=== PATIENT | female | born 1985 | race African-American/Black ===

== ENCOUNTER 2018-03-07 20:19 | Emergency (ER) | payer OTHER ==
[~2018-03-07] VITALS: Ht 160 cm; Wt 68.9 kg
[2018-03-07 20:19] VITALS: BP 109/72
--- NOTE | 2018-03-07 20:31 | ED.ADGEN ---
Adult General Chief Complaint Chief Complaint ".. I ve had a sore throat for 2 weeks.." HPI HPI Patient is a 32 year old female who presents with above hx and complaints generalized for 2 weeks. Has had increased nasal drainage and S in. Patient denies any specific ill contacts. Patient denies any travel. Patient denies any history of immunosuppression. Patient normally healthy. Patient does have injected pharynx. No adenopathy.. Any history of oral sex. Review of Systems Review of Systems Constitutional: Denies fever or chills [] Eyes: Denies change in visual acuity, redness, or eye pain [] HENT: Complains of nasal congestion. sore throat [] Respiratory: Denies cough or shortness of breath [] Cardiovascular: No additional information not addressed in HPI [] GI: Denies abdominal pain, nausea, vomiting, bloody stools or diarrhea [] : Denies dysuria or hematuria [] Musculoskeletal: Denies back pain or joint pain [] Integument: Denies rash or skin lesions [] Neurologic: Denies headache, focal weakness or sensory changes [] Endocrine: Denies polyuria or polydipsia [] All other systems were reviewed and found to be within normal limits, except as documented in this note. Family History Family History Noncontributory. Current Medications Current Medications Current Medications Medications (Trade) Dose Ordered Sig/Alfonso Start Time Stop Time Status Last Admin Dose Admin Prednisone (Prednisone) 20 mg STK-MED ONCE 03/07/18 21:04 03/07/18 21:05 DC Allergies Allergies Allergies Coded Allergies Type Severity Reaction Last Updated Verified Penicillins Allergy Unknown 03/07/18 Yes Physical Exam Physical Exam Constitutional: Well developed, well nourished, moderately acute distress, non- toxic appearance. [] HENT: Normocephalic, atraumatic, bilateral external ears normal, , no oral exudates, nose rhinorrhea. Swollen turbinates. Injected pharynx. Eyes: PERRLA, EOMI, conjunctiva normal, no discharge. [] Neck: Normal range of motion, no tenderness, supple, no stridor. [] Cardiovascular:Heart rate regular rhythm, no murmur [] Lungs & Thorax: Bilateral breath sounds clear to auscultation [] Abdomen: Bowel sounds normal, soft, no tenderness, no masses, no pulsatile masses. [] Skin: Warm, dry, no erythema, no rash. [] Back: No tenderness, no CVA tenderness. [] Extremities: No tenderness, no cyanosis, no clubbing, ROM intact, no edema. [] Neurologic: Alert and oriented X 3, normal motor function, normal sensory function, no focal deficits noted. [] Psychologic: Affect anxious, judgement normal, mood normal. [] Current Patient Data Vital Signs Vital Signs Date Time Temp Pulse Resp B/P (MAP) Pulse Ox O2 Delivery O2 Flow Rate FiO2 03/07/18 20:19 97.6 76 20 100 Room Air Lab Results Laboratory Tests Test 03/07/18 20:30 Group A Streptococcus Rapid Negative (NEGATIVE) EKG EKG [] Radiology/Procedures Radiology/Procedures [] Course & Med Decision Making Course & Med Decision Making Pertinent Labs and Imaging studies reviewed. (See chart for details). Gargle with Listerine 4 times a day. Take [id number] Tylenol and ibuprofen for pain. Lipid ibuprofen and liquid Benadryl may be helpful for pain. Follow-up primary care. Return if any concerns. [] Final Impression Final Impression 1, Pharyngitis- Viral 2. Seasonal Allergies Dragon Disclaimer Dragon Disclaimer This electronic medical record was generated, in whole or in part, using a voice recognition dictation system. JONATHAN BREAUX MD Mar 07, 2018 20:31
[2018-03-07] MEDS ORDERED: predniSONE 10 MG TABLET PO ONE (20:45)
[2018-03-07] MEDS ORDERED: predniSONE 20 MG TABLET ONE (21:04)
[2018-03-07] MEDS ORDERED: HYDR-79 PO (21:04)
== END 2018-03-07 21:10 | disposition home or self-care (01) ==
LOC: ER 20:19
DX: J30.2 Other seasonal allergic rhinitis (principal); J02.8 Acute pharyngitis due to other specified organisms; B97.89 Other viral agents as the cause of diseases classified elsewhere; Z88.0 Allergy status to penicillin
CPT/HCPCS: 87070; 87880; 99283; J7512

== ENCOUNTER 2018-12-02 10:39 | Emergency (ER) | payer OTHER ==
[~2018-12-02] VITALS: Ht 160 cm; Wt 81.6 kg
[~2018-12-02 10:39] MED LIST: HYDR-1179 PO
[2018-12-02 10:51] VITALS: BP 130/88
[2018-12-02] MEDS ORDERED: HYDR-3165 PO (11:11)
[2018-12-02] MEDS ORDERED: CLIN300C8 PO (11:11)
--- NOTE | 2018-12-02 11:11 | PHYS DOC ---
Past History Past Medical History: Anxiety, Depression Past Surgical History: Appendectomy, Alcohol Use: Occasionally Drug Use: None Adult General Chief Complaint Chief Complaint: DENTAL PROBLEM HPI HPI 33-year-old female presents with right upper quadrant abdominal pain. The patient has known cavities in this area and is working with a dentist to have some teeth removed. She has an appointment coming up soon, but the patient woke up this morning the right side of her face was swollen and she had significant pain in that area of her mouth. She has not been on antibiotics. She denies fever or chills. Review of Systems Review of Systems Constitutional: Denies fever or chills [] Eyes: Denies change in visual acuity, redness, or eye pain [] HENT: Denies nasal congestion or sore throat. Tooth pain[] Respiratory: Denies cough or shortness of breath [] Cardiovascular: No additional information not addressed in HPI [] GI: Denies abdominal pain, nausea, vomiting, bloody stools or diarrhea [] : Denies dysuria or hematuria [] Musculoskeletal: Denies back pain or joint pain [] Integument: Denies rash or skin lesions [] Neurologic: Denies headache, focal weakness or sensory changes [] Endocrine: Denies polyuria or polydipsia [] All other systems were reviewed and found to be within normal limits, except as documented in this note. Allergies Allergies Allergies Coded Allergies Type Severity Reaction Last Updated Verified Penicillins Allergy Unknown 03/07/18 Yes Physical Exam Physical Exam Constitutional: Well developed, well nourished, no acute distress, non-toxic appearance. [] HENT: Normocephalic, atraumatic, bilateral external ears normal, oropharynx moist, no oral exudates, nose normal. Tooth 1 and 2 with severe cavities. Surrounding erythema of the gums without palpable abscess.[] Eyes: PERRLA, EOMI, conjunctiva normal, no discharge. [] Neck: Normal range of motion, no tenderness, supple, no stridor. [] Cardiovascular:Heart rate regular rhythm, no murmur [] Lungs & Thorax: Bilateral breath sounds clear to auscultation [] Abdomen: Bowel sounds normal, soft, no tenderness, no masses, no pulsatile masses. [] Skin: Warm, dry, no erythema, no rash. [] Back: No tenderness, no CVA tenderness. [] Extremities: No tenderness, no cyanosis, no clubbing, ROM intact, no edema. [] Neurologic: Alert and oriented X 3, normal motor function, normal sensory function, no focal deficits noted. [] Psychologic: Affect normal, judgement normal, mood normal. [] Current Patient Data Vital Signs Vital Signs Date Time Temp Pulse Resp B/P (MAP) Pulse Ox O2 Delivery O2 Flow Rate FiO2 12/02/18 10:51 98.1 86 18 98 Room Air EKG EKG [] Radiology/Procedures Radiology/Procedures [] Course & Med Decision Making Course & Med Decision Making Pertinent Labs and Imaging studies reviewed. (See chart for details) The patient's tube does appear to be infected. She is allergic to penicillins. I will treat her with clindamycin and [place] 5/325 in the ED as well as prescriptions for home. [] Dragon Disclaimer Dragon Disclaimer This electronic medical record was generated, in whole or in part, using a voice recognition dictation system. Departure Departure: Impression: Primary Impression: Infection of tooth socket Disposition: HOME, SELF-CARE Condition: STABLE Referrals: PCP,NO (PCP) Patient Instructions: Abscessed Tooth, [id number] Scripts Hydrocodone Bit/Acetaminophen (NORCO 5-325 TABLET) 1 Each Tablet 1 TAB PO PRN Q6HRS PRN for PAIN, #10 TAB 0 Refills Prov: ROHITH OSBORNE DO 12/02/18 Clindamycin Hcl (CLINDAMYCIN HCL) 300 Mg Capsule 1 CAP PO TID for dental infection, #21 CAP Prov: ROHITH OSBORNE DO 12/02/18 ROHITH OSBORNE DO Dec 02, 2018 11:11
[2018-12-02] MEDS ORDERED: HYDROcodone/APAP 5/325MG 1 TAB TABLET PO ONE (11:15)
[2018-12-02] MEDS ORDERED: CLINDAMYCIN HCL 150 MG CAPSULE PO ONE (11:15)
== END 2018-12-02 11:33 | disposition home or self-care (01) ==
LOC: ER 10:39
DX: K04.7 Periapical abscess without sinus (principal); F41.9 Anxiety disorder, unspecified; F32.9 Major depressive disorder, single episode, unspecified; Z98.818 Other dental procedure status; Z88.0 Allergy status to penicillin
CPT/HCPCS: 99283

== ENCOUNTER 2019-02-26 13:31 | Emergency (ER) | payer OTHER ==
[~2019-02-26] VITALS: Ht 160 cm; Wt 58.2 kg
[~2019-02-26 13:31] MED LIST changes: +CLIN300C8 PO; +HYDR-3165 PO
[2019-02-26 13:48] VITALS: BP 138/88
[2019-02-26] MEDS ORDERED: ONDANSETRON PF 4 MG/2 ML VIAL. IV ONE (14:15)
--- NOTE | 2019-02-26 14:20 | PHYS DOC ---
Past History Past Medical History: Anxiety, Depression Past Surgical History: Appendectomy, Alcohol Use: Occasionally Drug Use: None Adult General Chief Complaint Chief Complaint: FLANK PAIN HPI HPI 33-year-old female presents with right-sided flank pain. The patient has had intermittent pain for the last 1 week. She presents today because the pain has become constant. It is a deep cramping of moderate level. She cannot find a comfortable position because anyway she lies or sits hurts. Patient denies history of kidney stone. She denies dysuria or frequency. She has not had a fever at home. She has taken and 800 milligrams of ibuprofen without relief. She has had some mild nausea. Review of Systems Review of Systems Constitutional: Denies fever or chills [] Eyes: Denies change in visual acuity, redness, or eye pain [] HENT: Denies nasal congestion or sore throat [] Respiratory: Denies cough or shortness of breath [] Cardiovascular: No additional information not addressed in HPI [] GI: Denies abdominal pain, nausea, vomiting, bloody stools or diarrhea [] : Denies dysuria or hematuria [] Musculoskeletal: Denies back pain or joint pain [] Integument: Denies rash or skin lesions [] Neurologic: Denies headache, focal weakness or sensory changes [] Endocrine: Denies polyuria or polydipsia [] All other systems were reviewed and found to be within normal limits, except as documented in this note. Current Medications Current Medications Current Medications Medications (Trade) Dose Ordered Sig/[facility] Start Time Stop Time Status Last Admin Dose Admin Ketorolac Tromethamine (Toradol 30mg Vial) 30 mg 1X ONCE 02/26/19 14:30 02/26/19 14:31 Ondansetron HCl (Zofran) 4 mg 1X ONCE 02/26/19 14:15 02/26/19 14:17 DC Allergies Allergies Allergies Coded Allergies Type Severity Reaction Last Updated Verified Penicillins Allergy Unknown 02/26/19 Yes Physical Exam Physical Exam Constitutional: Well developed, well nourished, no acute distress, non-toxic appearance. [] HENT: Normocephalic, atraumatic, bilateral external ears normal, oropharynx moist, no oral exudates, nose normal. [] Eyes: PERRLA, EOMI, conjunctiva normal, no discharge. [] Neck: Normal range of motion, no tenderness, supple, no stridor. [] Cardiovascular:Heart rate regular rhythm, no murmur [] Lungs & Thorax: Bilateral breath sounds clear to auscultation [] Abdomen: Bowel sounds normal, soft, no tenderness, no masses, no pulsatile masses. [] Skin: Warm, dry, no erythema, no rash. [] Back: No tenderness, no CVA tenderness. [] Extremities: No tenderness, no cyanosis, no clubbing, ROM intact, no edema. [] Neurologic: Alert and oriented X 3, normal motor function, normal sensory function, no focal deficits noted. [] Psychologic: Affect normal, judgement normal, mood normal. [] Current Patient Data Vital Signs Vital Signs Date Time Temp Pulse Resp B/P (MAP) Pulse Ox O2 Delivery O2 Flow Rate FiO2 02/26/19 13:48 98.3 103 20 98 Room Air EKG EKG [] Radiology/Procedures Radiology/Procedures [] Impressions: Examination: CT of the abdomen pelvis without contrast HISTORY: History of right flank pain for one week COMPARISON: None available TECHNIQUE: Axial CT images of the abdomen pelvis were performed without contrast and coronal sagittal reformats are performed Exposure: One or more of the following individualized dose reduction techniques were utilized for this examination: 1. Automated exposure control 2. Adjustment of the mA and/or kV according to patient size 3. Use of iterative reconstruction technique FINDINGS: The bibasilar lungs are clear. No evidence of free air identified in the abdomen. The evaluation of the solid organs is limited due to lack of IV contrast. The evaluation of bowel is limited due to lack of oral contrast. The visualized noncontrasted liver, spleen, adrenals grossly appears unremarkable. The gallbladder is mildly distended. The stomach is mildly distended. The visualized pancreas grossly appears unremarkable. The small bowel is nondilated. Surgical changes of appendectomy identified. Mild thickened appearance of the wall of the distal descending colon and sigmoid colon could be due to nondistention or mild colitis. The urinary bladder is mildly distended. Few scattered mesenteric lymph nodes identified with the largest measuring 1 cm in the right mid abdomen, nonspecific. No evidence of intrarenal collecting system calculus or hydronephrosis. No evidence of lytic bony destructive changes. IMPRESSION: 1. No evidence of intrarenal collecting system calculus or hydronephrosis. 2. Mild thickened appearance of the wall of the distal descending colon and sigmoid colon could be due to nondistention or mild colitis. 3. Nonspecific mesenteric lymph nodes. Electronically signed by: Donato Morales MD (02/26/2019 2:44 PM) [place] [id number] DICTATED AND SIGNED BY: DONATO MORALES MD DATE: 02/26/19 1444 CC: ROHITH OSBORNE DO; PCP,NO ~ Course & Med Decision Making Course & Med Decision Making Pertinent Labs and Imaging studies reviewed. (See chart for details) The patient's CT scan is suggestive of colitis. I will treat her with levofloxacin and Flagyl for 7 days since she is allergic to penicillins. Her labs are unremarkable. I gave her 30 mg of Toradol and 2 mg of morphine for her pain. We'll discharge her with a short course of [place] 5/325. She is stable for discharge at this time [] Dragon Disclaimer Dragon Disclaimer This electronic medical record was generated, in whole or in part, using a voice recognition dictation system. Departure Departure: Impression: Primary Impression: Colitis Disposition: 01 HOME, SELF-CARE Condition: STABLE Referrals: PCP,KEVIN (PCP) Patient Instructions: Colitis Scripts Hydrocodone Bit/Acetaminophen (NORCO 5-325 TABLET) 1 Each Tablet 1 TAB PO PRN Q6HRS PRN for PAIN, #10 TAB 0 Refills Prov: ROHITH OSBORNE DO 02/26/19 Metronidazole (METRONIDAZOLE) 500 Mg Tablet 1 TAB PO TID for colitis for 7 Days, #21 TAB Prov: ROHITH OSBORNE DO 02/26/19 Levofloxacin (LEVOFLOXACIN) 750 Mg Tablet 1 TAB PO DAILY for colitis for 7 Days, #7 TAB Prov: ROHITH OSBORNE DO 02/26/19 ROHITH OSBORNE DO February 26, 2019 14:20
[2019-02-26 14:22] LABS: BASO % 0 % (0-3); EOS # 0.5 x10^3/uL (0.0-0.7); EOS % 5 % (0-3); HEMATOCRIT 39.2 % (36.0-47.0); LYMPH # 3.1 x10^3/uL (1.0-4.8); LYMPH % 30 % (24-48); MEAN CORPUSCULAR HEMOGLOBIN 27 pg (25-35); MEAN CORPUSCULAR HGB CONC 33 g/dL (31-37); MEAN CORPUSCULAR VOLUME 81 fL (79-100); MONO # 0.7 x10^3/uL (0.0-1.1); MONO % 7 % (0-9); NEUT % 58 % (31-73); PLATELET COUNT 436 x10^3/uL (140-400); RED BLOOD COUNT 4.84 x10^6/uL (3.50-5.40); RED CELL DISTRIBUTION WIDTH 15.7 % (11.5-14.5); WHITE BLOOD COUNT 10.3 x10^3/uL (4.0-11.0)
[2019-02-26] MEDS ORDERED: KETOROLAC 30 MG/ML VIAL. IV ONE (14:30)
[2019-02-26 14:45] LABS: ALBUMIN 3.3 g/dL (3.4-5.0); ALBUMIN/GLOBULIN RATIO 0.7 (1.0-1.7); CALCIUM 9.5 mg/dL (8.5-10.1); CREATININE 0.7 mg/dL (0.6-1.0); GFR 117.3; POTASSIUM 4.2 mmol/L (3.5-5.1); TOTAL BILIRUBIN 0.2 mg/dL (0.2-1.0); TOTAL PROTEIN 8.1 g/dL (6.4-8.2)
--- NOTE | 2019-02-26 14:47 | RAD ---
Examination: CT of the abdomen pelvis without contrast HISTORY: History of right flank pain for one week COMPARISON: None available TECHNIQUE: Axial CT images of the abdomen pelvis were performed without contrast and coronal sagittal reformats are performed Exposure: One or more of the following individualized dose reduction techniques were utilized for this examination: 1. Automated exposure control 2. Adjustment of the mA and/or kV according to patient size 3. Use of iterative reconstruction technique FINDINGS: The bibasilar lungs are clear. No evidence of free air identified in the abdomen. The evaluation of the solid organs is limited due to lack of IV contrast. The evaluation of bowel is limited due to lack of oral contrast. The visualized noncontrasted liver, spleen, adrenals grossly appears unremarkable. The gallbladder is mildly distended. The stomach is mildly distended. The visualized pancreas grossly appears unremarkable. The small bowel is nondilated. Surgical changes of appendectomy identified. Mild thickened appearance of the wall of the distal descending colon and sigmoid colon could be due to nondistention or mild colitis. The urinary bladder is mildly distended. Few scattered mesenteric lymph nodes identified with the largest measuring 1 cm in the right mid abdomen, nonspecific. No evidence of intrarenal collecting system calculus or hydronephrosis. No evidence of lytic bony destructive changes. IMPRESSION: 1. No evidence of intrarenal collecting system calculus or hydronephrosis. 2. Mild thickened appearance of the wall of the distal descending colon and sigmoid colon could be due to nondistention or mild colitis. 3. Nonspecific mesenteric lymph nodes. Electronically signed by: Donato Morales MD (02/26/2019 2:44 PM) [place] [id number]
[2019-02-26] MEDS ORDERED: MORPHINE SULFATE 4 MG/ML DISP.SYRIN. IV ONE (15:30)
[2019-02-26] MEDS ORDERED: METR-34 PO (16:14)
[2019-02-26] MEDS ORDERED: LEVO750T5 PO (16:14)
[2019-02-26] MEDS ORDERED: HYDR-3165 PO (16:15)
[2019-02-26] MEDS ORDERED: HYDROcodone/APAP 5/325MG 1 TAB TABLET ONE (16:25)
[2019-02-26] MEDS ORDERED: HYDROcodone/APAP 5/325MG 1 TAB TABLET PO ONE (16:30)
== END 2019-02-26 16:20 | disposition home or self-care (01) ==
LOC: ER 13:31
DX: K52.9 Noninfective gastroenteritis and colitis, unspecified (principal); F41.9 Anxiety disorder, unspecified; F32.9 Major depressive disorder, single episode, unspecified; Z90.89 Acquired absence of other organs; Z98.890 Other specified postprocedural states; Z88.0 Allergy status to penicillin
CPT/HCPCS: 36415; 74176; 80053; 85025; 96374; 96375; 99285; J1885; J2270

== ENCOUNTER 2019-04-25 01:52 | Emergency (ER) | payer OTHER ==
[~2019-04-25] VITALS: Ht 157.5 cm; Wt 82.1 kg
[~2019-04-25 01:52] MED LIST changes: +LEVO750T5 PO; +METR-34 PO
[2019-04-25 02:08] VITALS: BP 129/77
[2019-04-25] MEDS ORDERED: CLIN300C8 PO (02:17)
[2019-04-25] MEDS ORDERED: HYDR-3165 PO (02:17)
--- NOTE | 2019-04-25 02:17 | PHYS DOC ---
Past History Past Medical History: Anxiety, Depression Additional Past Medical Histor: Insomnia Past Surgical History: Appendectomy, Smoking: Cigarettes Alcohol Use: Occasionally Drug Use: None Adult General Chief Complaint Chief Complaint: INSECT BITE HPI HPI 33-year-old female presents with one-week history of right flank swelling and tenderness concerning for possible abscess. Patient reports she thinks she might have a "spider bite". Denies seeing a spider. Denies fever or chills. Patient reports pain has significantly worsened. Reports his been taking [id number] Ibuprofen or Tylenol without interval improvement of symptoms. Denies . Reports last menstrual period 3.5 weeks ago. Review of Systems Review of Systems Constitutional: Denies fever or chills Eyes: Denies redness or eye pain HENT: Denies nasal congestion or sore throat Respiratory: Denies cough or shortness of breath Cardiovascular: Denies chest pain or palpitations GI: Denies abdominal pain, nausea, or vomiting : Denies dysuria or hematuria Musculoskeletal: Denies back pain or joint pain Integument: Reports right flank swelling and redness Neurologic: Denies headache, focal weakness or sensory changes Complete systems were reviewed and found to be within normal limits, except as documented in this note. Allergies Allergies Allergies Coded Allergies Type Severity Reaction Last Updated Verified Penicillins Allergy Unknown 02/26/19 Yes Physical Exam Physical Exam Constitutional: Well developed, well nourished, no acute distress, non-toxic appearance HENT: Normocephalic, atraumatic, oropharynx moist Eyes: Conjunctiva normal, no discharge Neck: Normal range of motion, no tenderness, supple Cardiovascular: Heart rate normal, regular rhythm Lungs & Thorax: Bilateral breath sounds clear to auscultation, no wheezing Skin: Warm, dry, 2cm indurated area with centra ulceration and surrounding erythema consistent for abscess with surrounding cellulitis to right lateral flank Extremities: No tenderness, ROM intact, no edema Neurologic: Alert and oriented X 3, no focal deficits noted Psychologic: Affect anxious, judgement normal EKG EKG [] Radiology/Procedures Radiology/Procedures [] Course & Med Decision Making Course & Med Decision Making Patient presents with history of present illness and physical exam consistent for abscess. Empiric antibiotics initiated. Tetanus updated. Pain addressed. I&D performed. Wound cleaned and dressed. Patient stable for discharge with outpatient follow-up with PCP. Discussed findings and plan with patient and family, who acknowledge understanding and agreement. Dragon Disclaimer Dragon Disclaimer This electronic medical record was generated, in whole or in part, using a voice recognition dictation system. Incision and Drainage Incision and Drainage : Site: right flank Blade Size: 11 I & D Procedure: sterile dressing applied Progress Verbal consent obtained. Time out performed. Hand hygiene utilized. Wound cleaned with ChloraPrep. Anesthesia obtained via a 25-gauge hypodermic needle with (3) mL's of lidocaine 2% with epinephrine. Incision and drainage performed with 11 blade scalpel with moderate drainage of purulent material. Wound explored with curved Marissa clamp and loculations broken down. Copious irrigation performed x 100ml of normal saline. Patient tolerated procedure well and without difficulty. Empiric antibiotic ointment applied prior to sterile dressing. Departure Departure: Impression: Primary Impression: Abscess Disposition: HOME, SELF-CARE Condition: STABLE Referrals: PCP,NO (PCP) Patient Instructions: Abscess, [id number] Additional Instructions: Do not soak your wound. You may shower. Clean wound daily with soap and water. Change dressing 2 times daily. Use over the counter antibiotic ointment with each dressing change. Scripts Hydrocodone Bit/Acetaminophen (NORCO 5-325 TABLET) 1 Each Tablet 0.5-1 TAB PO Q6HRS PRN for PAIN, #10 TAB Prov: MAKAYLA BANDA DO 04/25/19 Clindamycin Hcl (CLINDAMYCIN HCL) 300 Mg Capsule 1 CAP PO TID for Abscess, #21 CAP Prov: MAKAYLA BANDA DO 04/25/19 MAKAYLA BANDA DO Apr 25, 2019 02:17
[2019-04-25] MEDS ORDERED: LIDOCAINE 1% Multi-Dose 20 ML VIAL. ONE (02:21)
[2019-04-25] MEDS ORDERED: DIPHTH,PERTUSS(ACELL),TET TOX 0.5 ML DISP.SYRIN. VAX IM ONE ×2 (02:22→02:45)
[2019-04-25] MEDS ORDERED: CLINDAMYCIN HCL 150 MG CAPSULE PO ONE (02:30)
[2019-04-25] MEDS ORDERED: LIDOCAINE 2%/EPI 1:100,000 20 ML VIAL. IJ ONE (02:30)
[2019-04-25] MEDS ORDERED: KETOROLAC 30 MG/ML VIAL. IM ONE (02:30)
[2019-04-25] MEDS ORDERED: NEOMY/BACITR/POLYMYXIN OINT PACKET. TP ONE (02:45)
== END 2019-04-25 02:57 | disposition home or self-care (01) ==
LOC: ER 01:52
DX: L02.211 Cutaneous abscess of abdominal wall (principal); L03.311 Cellulitis of abdominal wall; F17.210 Nicotine dependence, cigarettes, uncomplicated; Z90.89 Acquired absence of other organs; Z98.890 Other specified postprocedural states; Z88.0 Allergy status to penicillin
CPT/HCPCS: 10060; 90471; 90715; 96372; 99284; J1885

== ENCOUNTER 2019-06-21 01:38 | Emergency (ER) | payer MEDICAID ==
[~2019-06-21] VITALS: Ht 157.5 cm; Wt 58.2 kg
[2019-06-21 01:40] VITALS: BP 139/52
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
[2019-06-21] MEDS ORDERED: HYDROcodone/APAP 5/325MG 1 TAB TABLET PO ONE (02:00)
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
[2019-06-21] MEDS ORDERED: HYDR-3165 PO (02:58)
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
== END 2019-06-21 03:03 | disposition home or self-care (01) ==
LOC: ER 01:38
DX: S01.511A Laceration without foreign body of lip, initial encounter (principal); M25.571 Pain in right ankle and joints of right foot; R51 Headache; F17.210 Nicotine dependence, cigarettes, uncomplicated; Z98.890 Other specified postprocedural states; Z88.0 Allergy status to penicillin; Y04.0XXA Assault by unarmed brawl or fight, initial encounter; Y93.84 Activity, sleeping; Y92.89 Other specified places as the place of occurrence of the external cause; Y99.8 Other external cause status
CPT/HCPCS: 70450; 70486; 73610; 73630; 99284